=== PATIENT | female | born 1955 | race Caucasian/White ===

== ENCOUNTER 2022-02-27 12:20 | Emergency (ER) | payer MEDICARE, OTHER ==
[2022-02-27] MEDS ORDERED: Azithromycin 250 MG TAB ONE (12:53)
[2022-02-27] MEDS ORDERED: predniSONE 20 MG TAB ONE (12:53)
== END 2022-02-27 14:35 | disposition home or self-care (01) ==
LOC: BURERS 12:20
DX: J06.9 Acute upper respiratory infection, unspecified (principal); I25.10 Atherosclerotic heart disease of native coronary artery without angina pectoris; E11.9 Type 2 diabetes mellitus without complications
CPT/HCPCS: 71045; 87081; 87430; 87804; J7512